=== PATIENT | male | born 1975 ===

== ENCOUNTER 2018-07-29 15:32 | Emergency (ER) | payer MEDICAID, OTHER ==
[2018-07-29 15:39] VITALS: BMI 24.5
--- NOTE | 2018-07-29 16:31 | C.PDOC ---
History Of Present Illness 43 y/o male presents to the ED complaining of left flank pain that began 3 days ago. Pain was initially intermittent but has now worsened and is constant. Patient notes it worsens with deep inspiration and lateral rotation of his tor so. No associated urinary symptoms, nausea, vomiting, or diarrhea. Patient notes he has been mildly constipated. He reports 1 month ago he had dark stool for 1 day, which then resolved. Patient also complains of a dry cough, admits to history of smoking. He reports having a fever when the pain first began, none since. Time Seen by Provider: 07/29/18 16:21 Chief Complaint (Nursing): Abdominal Pain History Per: Patient History/Exam Limitations: no limitations Onset/Duration Of Symptoms: Days (3) Past Medical History Reviewed: Historical Data, Nursing Documentation, Vital Signs Vital Signs: Last Vital Signs Temp 98.4 F 07/29/18 15:52 Pulse 104 H 07/29/18 15:52 Resp 20 07/29/18 15:52 BP 138/86 07/29/18 15:52 Pulse Ox 96 07/29/18 15:52 - Medical History PMH: Anxiety [facility]: [facility] & SUBCUTANEOUS NEC (12/28/14) OTHER OPEN INCISIONAL HERNIA REPAIR WITH GRAFT OR PROSTHESIS (04/07/13) TETANUS TOXOID ADMINIST (12/28/14) Family History: States: Unknown Family Hx - Social History Hx Tobacco Use: Yes Hx Alcohol Use: Yes Hx Substance Use: No - Immunization History Hx Tetanus Toxoid Vaccination: No Hx Influenza Vaccination: No Hx Pneumococcal Vaccination: No Review Of Systems Constitutional: Negative for: Fever (none today), Chills Cardiovascular: Negative for: Chest Pain Respiratory: Positive for: Cough. Negative for: Shortness of Breath, Sputum Gastrointestinal: Negative for: Nausea, Vomiting Genitourinary: Negative for: Dysuria, Frequency, Hematuria Musculoskeletal: Positive for: Back Pain (left flank) Neurological: Negative for: Weakness, Numbness, Headache Physical Exam - Physical Exam Appears: Non-toxic, No Acute Distress Skin: Warm, Dry, No Rash Head: Atraumatic, Normacephalic Eye(s): bilateral: Normal Inspection, PERRL, EOMI Oral Mucosa: Moist Neck: Normal ROM Chest: Symmetrical Cardiovascular: Rhythm Regular, No Murmur Respiratory: Normal Breath Sounds, No Accessory Muscle Use Gastrointestinal/Abdominal: Soft, Tenderness (mild tenderness to LUQ and LLQ), No Guarding, No Rebound, Other (Obese abdomen, old surgical scar from epigastric hernia repair noted) Back: CVA Tenderness (Left), No Vertebral Tenderness Extremity: Bilateral: Atraumatic, Normal ROM (x 4) Pulses: Left Dorsalis Pedis: Normal, Right Dorsalis Pedis: Normal Neurological/Psych: Oriented x3 Gait: Steady ED Course And Treatment - Laboratory Results Result Diagrams: 07/29/18 16:52 07/29/18 16:52 Lab Interpretation: Normal O2 Sat by Pulse Oximetry: 96 (RA) Pulse Ox Interpretation: Normal - CT Scan/US CT Abd/Pelvis Other Rad Studies (CT/US): Read By Radiologist, Radiology Report Reviewed CT/US Interpretation: Accession No. : [id number]. Patient Name / ID : CHAY AARON / [id number]. Exam Date : 07/29/2018 17:48:20 ( Approved ). Study Comment : Sex / Age : M / 43Y. Creator : Maxine Smith MD. Dictator : Maxine Smith MD. Field Crop Farmworker : Community Center Coordinator : Maxine Smith MD. Approver2 : Report Date : 07/29/2018 18:37:42. My Comment : . PROCEDURE: CT Abdomen and Pelvis with oral and IV contrast. HISTORY: abd pain. COMPARISON: None available. TECHNIQUE: Contiguous axial images of the abdomen and pelvis. Oral and IV contrast was administered. Coronal and Sagittal reformats generated and reviewed. Contrast dose: Radiation dose: Tot al exam DLP = 1019.94 mGy-cm. This CT exam was performed using one or more of the following dose reduction techniques: Automated exposure control, adjustment of the mA and/or kV according to patient size, and/or use of iterative reconstruction technique. FINDINGS: LOWER THORAX: No visible consolidation, pleural effusion, or pneumothorax. LIVER: Hypoattenuation of the liver compatible with hepatic steatosis. Hepatomegaly. GALLBLADDER AND BILE DUCTS: Unremarkable. PANCREAS: Unremarkable. SPLEEN: Unremarkable. ADRENALS: Unremarkable. KIDNEYS AND URETERS: The kidneys enhance symmetrically. No hydronephrosis or obstructing renal calculus. BLADDER: The urinary bladder appears unremarkable. REPRODUCTIVE: Unremarkable. APPENDIX: The appendix appears within normal limits of caliber. No secondary signs of acute appendicitis. BOWEL: The stomach is nondistended. The bowel loops appear within normal limits of caliber without evidence of intestinal obstruction. PERITONEUM: No significant free fluid. No definite free air. LYMPH NODES: No bulky lymphadenopathy identified. VASCULATURE: No aortic aneurysm. No atherosclerotic calcification or mural plaque present. BONES: No acute osseous abnormality is detected. OTHER FINDINGS: None. IMPRESSION: Hepatomegaly. Hy poattenuation of the liver compatible with hepatic steatosis. Progress Note: Blood work, UA, CXR ordered and reviewed. Pending CT Abdomen/Pelvis with PO & IV contrast. Results discussed with patient. Reevaluation Time: 19:23 Reassessment Condition: Improved (but still c/o left flank pain. Patient does not appear to be in any distress in ED.) Disposition Counseled Patient/Family Regarding: Studies Performed, Diagnosis, Need For Followup, Rx Given - Disposition Referrals: [facility] [Outside] Disposition: HOME/ ROUTINE Disposition Time: 19:24 Condition: STABLE Prescriptions: Cyclobenzaprine [Flexeril] 10 mg PO TID PRN #20 tab PRN Reason: Pain, Severe (8-10) Instructions: Flank Pain Forms: [facility] (Frisian) - Clinical Impression Clinical Impression: Left flank pain - Scribe Statement The provider has reviewed the documentation as recorded by the Mendelibsilvia Cortez Provider Attestation: All medical record entries made by the Mendelibsilvia were at my direction and personally dictated by me. I have reviewed the chart and agree that the record accurately reflects my personal performance of the history, physical exam, medical decision making, and the department course for this patient. I have also personally directed, reviewed, and agree with the discharge instructions and disposition.
[2018-07-29] MEDS ORDERED: Iohexol 240 (50 ml) PO STA (16:32)
[2018-07-29] MEDS ORDERED: Iohexol 240 (50 ml) ONE (16:47)
[2018-07-29 16:55] LABS: BASO # 0.1 K/uL (0.0-0.2); BASO % 1.2 % (0.0-2.0); EOS # 0.4 K/uL (0.0-0.7); EOS % 4.7 % (0.0-4.0); HEMOGLOBIN 15.7 g/dL (12.0-18.0); LYMPH # 1.8 K/uL (1.0-4.3); LYMPH % 23.3 % (20.0-40.0); MEAN CELL VOLUME 92.1 fL (80.0-94.0); MEAN CORPUSCULAR HEMOGLOBIN 30.7 pg (27.0-31.0); MEAN CORPUSCULAR HGB CONC 33.3 g/dL (33.0-37.0); MEAN PLATELET VOLUME 8.2 fL (7.2-11.7); MONO # 0.6 K/uL (0.0-0.8); MONO % 8.2 % (0.0-10.0); NEUT # 4.9 K/uL (1.8-7.0); NEUT % 62.6 % (50.0-75.0); RBC 5.12 Mil/uL (4.40-5.90); WHITE BLOOD COUNT 7.9 K/uL (4.8-10.8)
[2018-07-29 17:10] LABS: ALB/GLOB RATIO 1.3 (1.0-2.1); ALBUMIN 4.1 g/dL (3.5-5.0); ALT/SGPT 30 U/L (21-72); AST/SGOT 28 U/L (17-59); BLOOD UREA NITROGEN 15 mg/dL (9-20); CALCIUM 9.2 mg/dl (8.6-10.4); GFR NON-AFRICAN AMERICAN > 60; LIPASE 95 U/L (23-300)
[2018-07-29] MEDS ORDERED: Iohexol 300 100 ML IJ ONE (17:39)
--- NOTE | 2018-07-29 18:41 | CT ---
PROCEDURE: CT Abdomen and Pelvis with oral and IV contrast. HISTORY: abd pain COMPARISON: None available TECHNIQUE: Contiguous axial images of the abdomen and pelvis. Oral and IV contrast was administered. Coronal and Sagittal reformats generated and reviewed. Contrast dose: Radiation dose: Total exam DLP = 1019.94 mGy-cm. This CT exam was performed using one or more of the following dose reduction techniques: Automated exposure control, adjustment of the mA and/or kV according to patient size, and/or use of iterative reconstruction technique. FINDINGS: LOWER THORAX: No visible consolidation, pleural effusion, or pneumothorax. LIVER: Hypoattenuation of the liver compatible with hepatic steatosis. Hepatomegaly. GALLBLADDER AND BILE DUCTS: Unremarkable. PANCREAS: Unremarkable. SPLEEN: Unremarkable. ADRENALS: Unremarkable. KIDNEYS AND URETERS: The kidneys enhance symmetrically. No hydronephrosis or obstructing renal calculus. BLADDER: The urinary bladder appears unremarkable. REPRODUCTIVE: Unremarkable. APPENDIX: The appendix appears within normal limits of caliber. No secondary signs of acute appendicitis. BOWEL: The stomach is nondistended. The bowel loops appear within normal limits of caliber without evidence of intestinal obstruction. PERITONEUM: No significant free fluid. No definite free air. LYMPH NODES: No bulky lymphadenopathy identified. VASCULATURE: No aortic aneurysm. No atherosclerotic calcification or mural plaque present. BONES: No acute osseous abnormality is detected. OTHER FINDINGS: None. IMPRESSION: Hepatomegaly. Hypoattenuation of the liver compatible with hepatic steatosis.
[2018-07-29 18:59] LABS: SQUAMOUS EPITHIAL 3 /hpf (0-5); URINE BILIRUBIN NEGATIVE (NEGATIVE); URINE BLOOD NEGATIVE (NEGATIVE); URINE CLARITY Clear (Clear); URINE COLOR Yellow (YELLOW); URINE GLUCOSE (UA) NORMAL (Normal); URINE LEUKOCYTE ESTERASE TRACE Leu/uL (Negative); URINE PROTEIN NEGATIVE (NEGATIVE); URINE UROBILINOGEN NORMAL mg/dL (0.2-1.0)
[2018-07-29] MEDS ORDERED: Sodium Chloride 0.9% 1,000 ML IV ONE (19:09)
[2018-07-29 19:19] VITALS: O2SAT 96
[2018-07-29 19:52] VITALS: BP 128/80; PULSE 96; RESP 16; TEMP 99.2
[2018-07-29] MEDS ORDERED: Oxycodone/Acetaminophen 5/325 mg Tab PO STA (19:55)
--- NOTE | 2018-07-30 11:12 | RAD ---
HISTORY: abd pain COMPARISON: Chest x-ray performed 08/07/14 TECHNIQUE: Chest PA and lateral FINDINGS: LUNGS: No focal consolidation. Please note that chest x-ray has limited sensitivity for the detection of pulmonary masses. PLEURA: No significant pleural effusion identified. No definite pneumothorax . CARDIOVASCULAR: Heart size appears top normal. No significant atherosclerotic calcifications of the aorta. OSSEOUS STRUCTURES: Degenerative changes of the spine. VISUALIZED UPPER ABDOMEN: Eventration/elevation of the right hemidiaphragm. OTHER FINDINGS: None. IMPRESSION: No focal consolidation.
== END 2018-07-29 20:32 | disposition home or self-care (01) ==
LOC: C.ER 15:32
DX: R10.12 Left upper quadrant pain (principal)
CPT/HCPCS: 71046; 74177; 80053; 81001; 83690; 85025; 96361; 96374; 99284; J1885; J7030; Q9966; Q9967